=== PATIENT | female | born 1955 | race Two or more races ===

== ENCOUNTER 2024-11-25 05:45 | Day surgery (SDC) | payer MEDICARE, SELFPAY ==
--- NOTE | 2024-11-19 06:49 | EKG_ITS ---
[facility] Test Date: 2024-11-19 Pat Name: ANIBAL ALVARADO Department: Room: - Gender: Female Complaint Evaluation Supervisor: LUPIS : 1955 Requested By: Patricio Hanson Order Number: [id number] Reading MD: Patricio Hanson Measurements Intervals [place] Rate: 62 P: 27 [place]: 146 QRS: -32 QRSD: 94 T: 24 QT: 413 QTc: 420 Interpretive Statements SINUS RHYTHM MARKED LEFT AXIS DEVIATION POSSIBLE ANTERIOR MYOCARDIAL INFARCTION , OF INDETERMINATE AGE No previous ECG available for comparison /[id number]
[2024-11-19 07:52] VITALS: BMI 31.1
[2024-11-19 09:10] LABS: Basophils % (Auto) 1 % (0-2.5); Eosinophils # (Auto) 0.1 Thou/mm3 (0.0-0.5); Eosinophils % (Auto) 2 % (0-10); Hematocrit 43.2 % (36.0-46.0); Hemoglobin 14.4 g/dL (12.0-16.0); Immature Granulocytes % (Auto) 0 % (0-0); Immature Granulocytes Auto 0.02 Thou/mm3 (0.00-0.00); Lymphocytes # (Auto) 1.4 Thou/mm3 (1.0-4.8); Lymphocytes % (Auto) 27 % (10-50); Mean Corpuscular HGB Conc 33.3 g/dl (31.0-37.0); Mean Corpuscular Hemoglobin 28.5 pg (25.0-35.0); Mean Corpuscular Volume 85 fL (80-100); Monocytes # (Auto) 0.6 Thou/mm3 (0.0-0.8); Monocytes % (Auto) 11 % (0-12); Neutrophils # (Auto) 3.1 Thou/mm3 (1.8-7.7); Neutrophils % (Auto) 60 % (37-80); Nucleated Red Blood Cell % 0 /100 WBC (0); Platelet Count 244 Thou/mm3 (140-440); RDW Standard Deviation 43.5 fL (36.4-46.3); Red Blood Count 5.06 Miln/mm3 (4.00-5.20); White Blood Count 5.3 Thou/mm3 (3.6-11.0)
[2024-11-19 09:24] LABS: Alanine Aminotransferase 51 U/L (10-49); Albumin, Serum 4.5 gm/dL (3.4-4.8); Albumin/Globulin Ratio 1.8 (1.2-2.2); Alkaline Phosphatase 84 U/L (46-116); Anion Gap 8 (7-16); Aspartate Amino Transferase 32 U/L (0-34); BUN/Creatinine Ratio 28 Ratio (12-20); Bilirubin,Total 0.5 mg/dL (0.3-1.2); Blood Urea Nitrogen 17 mg/dL (9-23); Calcium 9.7 mg/dL (8.3-10.6); Calcium (Corrected) 9.7 mg/dL (8.5-10.1); Carbon Dioxide 28.4 mMol/L (20.0-31.0); Chloride 107 mMol/L (98-107); Creatinine (Component) 0.6 mg/dL (0.6-1.3); Estimated Creatinine Clearance 87.3 mL/min (>60); Globulin 2.5 gm/dL (2.3-3.5); Glucose 170 mg/dL (74-106); Osmolality,Calculated 290 (275-295); Potassium 4.5 mMol/L (3.4-5.1); Sodium 143 mMol/L (136-145); eGFR > 60 See Note
[2024-11-19 09:32] LABS: Partial Thromboplastin Time 26.3 Seconds (22.0-36.0); Prothrombin Time 10.8 Seconds (9.0-12.2)
[2024-11-25] VITALS (8 sets, daily range): BP systolic 143–164; BP diastolic 67–87; PULSE 67–85; RESP 12–18; TEMP 36.2–36.7; O2SAT 95–98; BMI 30.5
[2024-11-25] MEDS: RINGERS LACTATED 1000 ML 1,000 ML 20 ML IV (06:55)
--- NOTE | 2024-11-25 08:31 | PD.SUROPNT ---
Date of Procedure 11/25/24 Pre Op Diagnosis Symptomatic varicose veins right lower extremity Post Op Diagnosis Same as preop diagnosis Procedure Varicose vein excisions right lower extremity Findings All marked varicose veins were successfully removed or disrupted Procedure Description With the patient standing in the preop area all varicose veins to be removed were carefully marked with a sharpie pen. The patient was brought to the operating room and general anesthesia was induced. The right lower extremity sterilely prepped and draped. A timeout was performed. The varicose veins were removed by making a small skin donaldo in the marked areas with a #11 blade then bluntly enlarging the incision and grasping the veins with a mosquito clamp then sequentially excising or disrupting them. When all veins were either removed or disrupted the leg was cleaned and then the incisions were reapproximated with Steri-Strips. The leg was then dressed with gauze Kerlix and an Philippe wrap. The patient woke up from anesthesia was moved to recovery in stable condition Anesthesia other (Laryngeal mask anesthesia) Pathology / specimen Other (Varicose veins right leg) Estimated Blood Loss 200 Condition Stable Disposition PACU Surgeon Patricio Ace MD Surgical Staff Operation Date: 11/25/24 07:30 Case Staff Anesthesiologist: Gt Capone RN First Assistant: Jeimy Colunga
--- NOTE | 2024-11-25 08:38 | SUR.PHASEI ---
pt received from OR in recovery bay 5. pt asleep but responds to voice, breathing unlabored on room air. v/s stable. pt dressing to right lower extremity cdi. report received from Maria Elena WERNER and Dr. Capone.
[2024-11-25] MEDS: fentaNYL CIT INJ 50 mCg/ML AMP 2ML 25 MCG IV ×3 (08:57→09:25)
[2024-11-25] MEDS: ONDANSETRON INJ 2 MG/ML INJ 2 ML 4 MG IV (09:20)
--- NOTE | 2024-11-25 09:42 | SUR.PHASEII ---
pt able to tolerate oral fluids without difficulty swallowing or nausea/vomiting,.
--- NOTE | 2024-11-25 10:00 | SUR.PHASEII ---
pt awake and alert, breathing unlabored on room air. v/s stable. pt dressing to right lower extremity cdi. pt able to ambulate to wheelchair with steady gait, pt dressing inspected after ambulation no signs of bleeding noted. d/c instructions given with Pradip in room using audio narrator Emani [email or web address], all questions answered. pt d/c via wheelchair with all belongings.
== END 2024-11-25 10:00 | disposition home or self-care (01) ==
PROVIDERS: Anesthesiology; PCP Family Medicine; Referring Provider Surgery Vascular Surgery; Visit Provider Surgery Vascular Surgery
PROC: (CPT 36475; principal; 2024-11-25 07:30)
DX: I83.811 Varicose veins of right lower extremity with pain (principal); Z01.810 Encounter for preprocedural cardiovascular examination
CPT/HCPCS: 37765; 36415; 80053; 85025; 85610; 85730; 93005; A4217; C1894; J0690; J2250; J2371; J2405; J2704; J3010; J7050; J7120

== ENCOUNTER 2025-02-17 09:30 | Day surgery (SDC) | payer MEDICARE, SELFPAY ==
[2025-02-16 08:23] VITALS: BMI 31.2
[2025-02-16 11:39] LABS: Basophils % (Auto) 1 % (0-2.5); Eosinophils # (Auto) 0.1 Thou/mm3 (0.0-0.5); Eosinophils % (Auto) 2 % (0-10); Hematocrit 42.2 % (36.0-46.0); Hemoglobin 13.8 g/dL (12.0-16.0); Immature Granulocytes % (Auto) 0 % (0-0); Immature Granulocytes Auto 0.01 Thou/mm3 (0.00-0.00); Lymphocytes % (Auto) 27 % (10-50); Mean Corpuscular HGB Conc 32.7 g/dl (31.0-37.0); Mean Corpuscular Volume 86 fL (80-100); Monocytes # (Auto) 0.4 Thou/mm3 (0.0-0.8); Monocytes % (Auto) 11 % (0-12); Neutrophils # (Auto) 2.2 Thou/mm3 (1.8-7.7); Neutrophils % (Auto) 59 % (37-80); Nucleated Red Blood Cell % 0 /100 WBC (0); Platelet Count 244 Thou/mm3 (140-440); RDW Standard Deviation 43.8 fL (36.4-46.3); Red Blood Count 4.93 Miln/mm3 (4.00-5.20); White Blood Count 3.8 Thou/mm3 (3.6-11.0)
[2025-02-16 11:47] LABS: Partial Thromboplastin Time 26.9 Seconds (22.0-36.0); Prothrombin Time 10.9 Seconds (9.0-12.2)
[2025-02-16 12:02] LABS: Alanine Aminotransferase 46 U/L (10-49); Albumin, Serum 4.4 gm/dL (3.4-4.8); Albumin/Globulin Ratio 1.8 (1.2-2.2); Alkaline Phosphatase 93 U/L (46-116); Anion Gap 9 (7-16); Aspartate Amino Transferase 31 U/L (0-34); BUN/Creatinine Ratio 32 Ratio (12-20); Bilirubin,Total 0.5 mg/dL (0.3-1.2); Blood Urea Nitrogen 19 mg/dL (9-23); Calcium 8.7 mg/dL (8.3-10.6); Calcium (Corrected) 8.7 mg/dL (8.5-10.1); Carbon Dioxide 27.2 mMol/L (20.0-31.0); Chloride 106 mMol/L (98-107); Creatinine (Component) 0.6 mg/dL (0.6-1.3); Estimated Creatinine Clearance 83.6 mL/min (>60); Globulin 2.5 gm/dL (2.3-3.5); Glucose 164 mg/dL (74-106); Osmolality,Calculated 289 (275-295); Potassium 4.8 mMol/L (3.4-5.1); Sodium 142 mMol/L (136-145); Total Protein 6.9 gm/dL (5.7-8.2); eGFR > 60 See Note
[2025-02-17] VITALS (9 sets, daily range): BP systolic 134–169; BP diastolic 71–87; PULSE 66–89; RESP 12–20; TEMP 36.1–36.6; O2SAT 97–100; BMI 30.4
[2025-02-17] MEDS: RINGERS LACTATED 1000 ML 1,000 ML 20 ML IV (10:27)
--- NOTE | 2025-02-17 13:45 | ESOP_ITS ---
Date of Procedure 02/17/25 Pre Op Diagnosis Symptomatic varicose veins left lower Post Op Diagnosis Same as preop diagnosis Procedure Radiofrequency endovenous ablation of the greater saphenous vein left lower extremity Varicose vein excisions left lower extremity through 36 separate incisions Findings Successful ablation of the greater saphenous vein with no evidence of thrombus at the saphenofemoral junction or in the common femoral vein All marked varicose veins were successfully removed or disrupted Procedure Description With the patient standing in the preop area all varicose veins to be removed were carefully marked with a sharpie pen. The patient was then brought to the operating room and laryngeal mask anesthesia was induced. The left lower extremity was then sterilely prepped and draped. A timeout was performed. The vein ablation procedure was performed first by mapping out the course of the greater saphenous vein between the knee and the saphenofemoral junction on the left medial thigh then accessing the vein just above the knee with a 21-gauge mini stick needle under direct ultrasound guidance. This was followed by mini stick wire then a 7 Indonesian sheath introducer. The ablation catheter was brought to the field, prepped and placed into the patient with the tip carefully positioned 3 to 5 cm distal to the saphenofemoral junction. Tumescent anesthesia was then instilled in the subcutaneous tissues surrounding the vein over the treatment length. Catheter tip position was then again checked and under direct ultrasound compression the catheter was activated with 2 cycles proximally and 2 additional cycles down the leg. The saphenofemoral junction was then inspected to be free of thrombus and no thrombus in the common femoral vein. The catheter and sheath were removed and pressure was held for hemostasis. Attention was then turned to the veins which were removed by making a small skin donaldo with a #11 blade then bluntly enlarging the incision with a mosquito clamp and sequentially excising or disrupting the veins. When all veins were either excised or disrupted hemostasis was obtained and the wounds and the limb was washed then the Steri-Strips were used to reapproximate the incisions. A sterile dressing was then applied with gauze Kerlix and an Philippe wrap. The patient woke up from anesthesia and was moved to recovery in stable condition Anesthesia other (Laryngeal mask anesthesia) Pathology / specimen Other (Left leg varicose veins) Estimated Blood Loss 75 Condition Stable Disposition PACU Surgeon Patricio Ace MD Surgical Staff Operation Date: 02/17/25 11:30 Case Staff Anesthesiologist: Gt Capone RN First Assistant: Valarie Parisi
--- NOTE | 2025-02-17 14:27 | SUR.PHASEI ---
142 Patient arrived to recovery resting comfortably in [facility], on oxygen 4L via nasal cannula, breathing unlabored, vital signs stable, denies pain and nausea, dressing intact to left lower extremity; steri-strips, abd, kerlix roll, silk tape, daria wraps, no bleeding noted, report received from Matias ORELLANA/Dr. Capone and Thomas WERNER
--- NOTE | 2025-02-17 16:00 | SUR.PHASEII ---
1600 Patient meets discharge criteria from recovery, awake and alert, breathing unlabored, vital signs stable, denies pain and nausea, drinking water; tolerating well, assisted with dressing into her clothing by this health science writer, discharge instructions given with the assistance of the telephone spanish medical interpreter Genoveva ID#[id number] to patient and her , signed discharge instructions. Patient given all her belongings prior to discharge, transported via wheelchair and left in a private vehicle.
== END 2025-02-17 16:00 | disposition home or self-care (01) ==
PROVIDERS: Anesthesiology; PCP Family Medicine; Referring Provider Surgery Vascular Surgery; Visit Provider Surgery Vascular Surgery
PROC: (CPT 36475; principal; 2025-02-17 11:15)
DX: I83.812 Varicose veins of left lower extremity with pain (principal)
CPT/HCPCS: 36475; 37766; 36415; 80053; 85025; 85610; 85730; A4217; C1888; C1894; J1100; J2250; J2371; J2405; J2704; J2765; J3010; J3490; J7040; J7050; J7120

== ENCOUNTER → 2025-06-16 | Outpatient (CLI) | payer MEDICARE, SELFPAY ==
--- NOTE | 2025-06-16 13:15 | XR_ITS ---
Examination: Screening digital mammography, bilateral Computer aided detection 3-D breast Tomosynthesis, bilateral Date and time of exam: June 16, 2025 1326 hours Compared to mammograms dating to February 02, 2014 Indication: Screening Technique: Nonmagnified MLO, CC views of the breasts to been obtained, reconstructed from 3-D Tomosynthesis images. R2 computer aided detection program utilized for evaluation of suspicious masses and/or abnormal calcifications. 3-D Tomosynthesis images obtained. Findings: Scattered areas of fibroglandular density. 10 mm focal asymmetry nipple level left breast anterior depth Impression: BI-RADS Category 0: Incomplete: Need additional imaging evaluation 10 mm focal asymmetry nipple level left breast anterior depth, recommend follow-up spot tomographic views of this asymmetry as well as bilateral breast sonography to complete the workup
== END | disposition home or self-care (01) ==
LOC: CDIM 13:19
PROVIDERS: PCP Family Medicine; Referring Provider Family Medicine; Visit Provider Family Medicine
DX: Z12.31 Encounter for screening mammogram for malignant neoplasm of breast (principal); N64.89 Other specified disorders of breast
CPT/HCPCS: 77063; 77067